=== PATIENT | female | born 1980 | race Caucasian/White ===

== ENCOUNTER → 2016-12-29 | Outpatient (CLI) | payer BC | LOC: CT 08:25 | DX: R16.2 Hepatomegaly with splenomegaly, not elsewhere classified (principal); K58.9 Irritable bowel syndrome, unspecified | CPT/HCPCS: J7050; Q9962 ==

== ENCOUNTER → 2022-01-16 | Outpatient (CLI) | payer BC ==
[~2022-01-16] MED LIST: COLACE 100MG C100 MG PO; IBUPROFEN600 MG PO; LORTAB 5-325 M1 EACH PO; PRENATAL VITAM1 EAC8 PO
== END ==
LOC: KOH-I 16:00
DX: R51.9 Headache, unspecified (principal); H43.399 Other vitreous opacities, unspecified eye; R11.0 Nausea; H53.9 Unspecified visual disturbance
CPT/HCPCS: 70551